=== PATIENT | female | born 1980 | race Caucasian/White ===

== ENCOUNTER 2018-09-10 08:25 | Day surgery (SDC) | payer BC ==
[~2018-09-10 08:25] MED LIST: Lidocaine 1% with EPINEPHrine 1:100,000 50 ML MDV ONE; Midazolam 1 MG/ML 2 ML SDV ONE; Propofol 200 MG/20 ML SDV ONE; Sodium Chloride 0.9% 10 ML ONE; Sodium Tetradecyl Sulfate 1% 20 MG/2 ML SDV ONE; fentaNYL 100 MCG/2 ML SDV ONE
[2018-09-10] MEDS ORDERED: Sodium Chloride 0.9% 1,000 ML IV SCH (09:00)
[2018-09-10] MEDS ORDERED: Lidocaine 1% w/EPINEPHrine 50 ML, Sodium Bicarbonate 5 MEQ in Sodium Chloride 0.9% 950 ML INJECT ONE (09:30)
[2018-09-10] MEDS ORDERED: Propofol 200 MG/20 ML SDV ONE (09:37)
--- NOTE | 2018-09-10 15:22 | OR ---
DATE OF PROCEDURE: 09/10/2018 PROCEDURES: 1. Radiofrequency ablation of right greater saphenous vein. 2. Sclerotherapy of right leg, multiple. 3. Compression wrapping of right leg ([id number]). COMPLICATIONS: None. SURGEON: Marc Noble MD CLIMATOLOGY PROFESSOR: None. ANESTHESIA: MAC/local. PREOPERATIVE DIAGNOSIS: Venous insufficiency with inflammation and pain. POSTOPERATIVE DIAGNOSIS: Venous insufficiency with inflammation and pain. RISKS: Risks, benefits, alternatives, and limitations including, but not limited to infection, bleeding, and DVT formation were explained to the patient, who wished to proceed. PROCEDURE IN DETAIL: The patient was placed in supine position. The right GSV was accessed at the level of the ankle without difficulty. This was accessed via 21-gauge needle, then 35,000th wire, and then a 7-Turkmen sheath. RFA probe was advanced to 7 cm from the saphenofemoral junction. Tumescent fluid was injected in a 1-cm jacket around this. Direct even pressure was held as the probe was deployed x2 proximally and distally, and x1 in all other segments. The sheath and device were then removed. Direct pressure was held for 10 minutes. Dermabond was applied. Sclerotherapy was then performed on the right leg. There were 6 on the right. They were injected using 0.33% sodium tetradecyl. No more than 2 mL was injected in one location. The length was from approximately 2 cm to 7 cm in length. Two-layer two-stage compression wrapping in a [id number] fashion proximally to distally with 20 mm gradient pressure was then performed without difficulty. The patient tolerated the procedure well. Marc Noble MD /[id number]
== END 2018-09-10 11:08 | disposition home or self-care (01) ==
LOC: JP.SDS 08:25
PROVIDERS: ATTEND Surgery
DX: I83.811 Varicose veins of right lower extremity with pain (principal); I83.11 Varicose veins of right lower extremity with inflammation; J45.909 Unspecified asthma, uncomplicated
CPT/HCPCS: 36471; 36475; J1642; J2250; J2704; J3010; J7030; J3490